=== PATIENT | female | born 1970 | race American Indian/Alaskan Native ===

== ENCOUNTER 2018-10-23 08:32 | Day surgery (SDC) | payer MEDICARE ==
[2018-10-23] MEDS ORDERED: NACL 0.9% 500 ML 500 ML IV SCH (09:00)
[2018-10-23] MEDS ORDERED: ECOTRIN PO ONE (09:30)
[2018-10-23 09:59] LABS: BUN/Creatinine Ratio 21; Blood Urea Nitrogen 15 mg/dL (7-17); Calcium 8.3 mg/dL (8.4-10.2); Hemolysis Index 12
[2018-10-23 10:09] LABS: Basophils % (Auto) 0.3 % (0.0-1.8); Eosinophils # (Auto) 0.2 K/mm3 (0.0-0.4); Eosinophils % (Auto) 2.7 % (0.0-4.3); Hematocrit 28.5 % (30.3-42.9); Hemoglobin 8.7 gm/dl (10.1-14.3); Lymphocytes # (Auto) 1.2 K/mm3 (1.2-5.4); Lymphocytes % (Auto) 13.1 % (13.4-35.0); Mean Corpuscular HGB Conc 31 % (30-34); Mean Corpuscular Volume 73 fl (79-97); Monocytes # (Auto) 0.4 K/mm3 (0.0-0.8); Monocytes % (Auto) 4.7 % (0.0-7.3); Platelet Count 234 K/mm3 (140-440); Red Blood Count 3.91 M/mm3 (3.65-5.03)
[2018-10-23 10:21] LABS: INR 1.12 (0.87-1.13)
[2018-10-23] MEDS ORDERED: HEPARIN/NS 5000 UNIT/500ML(CATH LAB) 500 ML IR ONE ×2 (11:22→11:44)
[2018-10-23] MEDS ORDERED: VERSED ONE (11:22)
[2018-10-23] MEDS ORDERED: SUBLIMAZE ONE (11:23)
[2018-10-23] MEDS ORDERED: XYLOCAINE 2% INFILTRATI ONE (11:23)
--- NOTE | 2018-10-23 12:12 | Short Stay Summary ---
Short Stay Documentation Date of service: 10/23/18 - History H&P: obtained from office - Allergies and Medications Current Medications: Allergies No Known Allergies Allergy (Verified 08/22/13 07:09) Home Medications Medication Instructions Recorded Confirmed Last Taken Type Potassium Chloride [Klor-Con 8] 8 meq PO QDAY #30 tablet 08/22/13 10/23/18 10/22/18 Rx 8meq Prednisone 4 mg PO DAILY 08/22/13 10/23/18 10/22/18 History 4mg Ambrisentan [Letairis] 10 mg PO DAILY #30 tab 01/21/14 10/23/18 10/22/18 Rx 10mg Hydroxychloroquine [Plaquenil] 200 mg PO BID 01/21/14 10/23/18 10/22/18 History 200mg Omeprazole [PriLOSEC] 40 mg PO DAILY 01/21/14 10/23/18 10/22/18 History 40mg Gabapentin 300 mg PO TID 11/09/14 10/23/18 10/22/18 History 300mg Tadalafil (Nf) [Adcirca (Nf)] 20 mg PO DAILY 11/09/14 10/23/18 10/22/18 History 20mg Leflunomide [Arava] 20 mg PO DAILY 10/23/18 10/23/18 10/22/18 History 20mg Active Medications Sodium Chloride (Nacl 0.9% 500 Ml) 500 mls @ 50 mls/hr IV DIRECT PÉREZ Stop: 10/23/18 18:59 Last Admin: 10/23/18 10:54 Dose: 50 mls/hr Documented by: - Physical exam General appearance: no acute distress Integumentary: no rash HEENT: Atraumatic Lungs: Clear to auscultation Breasts: deferred Heart: Regular rate Gastrointestinal: normal Female Genitourinary: deferred Rectal Exam: deferred Extremities: no ischemia Neurological: Normal gait - Brief post op/procedure progress note Date of procedure: 10/23/18 Pre-op diagnosis: PAH Post-op diagnosis: same Procedure: RHC Anesthesia: none Findings: See report Surgeon: JEREMI RENTERIA Estimated blood loss: none Pathology: none Condition: stable - Hospital course Hospital course: Uneventful - Disposition Condition at discharge: Good Disposition: DC-01 TO HOME OR SELFCARE Short Stay Discharge Plan Activity: advance as tolerated Weight Bearing Status: Weight Bear as Tolerated Diet: low fat, low cholesterol, low salt Follow up with: DUSTIN ALAS MD [Primary Care Provider] - 7 Days
[2018-10-23 13:04] VITALS: BP 132/51
--- NOTE | 2018-10-23 19:40 | Cardiac Catherization Report ---
RIGHT HEART CATHETERIZATION INDICATION FOR PROCEDURE: Pulmonary hypertension. PROCEDURES PERFORMED: Right heart catheterization with hemodynamic measurement and oxygen saturation run. DESCRIPTION OF PROCEDURE: After obtaining written consent, the patient was draped using sterile technique. Lidocaine 2% was injected into the right AC area. Over a previously inserted intravenous line, a 6-[place] vascular sheath was inserted into the right brachial vein. A 6-[place]-Christine catheter was used to measure right-sided hemodynamics and performed oxygen saturation run. No complications occurred during the procedure. Hemostasis was achieved at the end of the procedure using manual pressure. SEDATION ADMINISTERED: None. FINDINGS: HEMODYNAMICS: 1. The mean pulmonary capillary wedge pressure is 50 mmHg. The pulmonary artery systolic pressure is 58 mmHg. Pulmonary artery diastolic pressure is 23 mmHg. The mean pulmonary artery pressure is 40 mmHg. The transpulmonary gradient is 25 mmHg. The pulmonary vascular resistance is 5.5 Frost units. 2. The right ventricular systolic pressure is 61 mmHg and the right ventricular end diastolic pressure 14 mmHg. 3. The mean right atrial pressure is 13 mmHg. 4. The thermal dilution, cardiac output 4.55 liters per minute and the thermal dilution, cardiac index 2.26 liters per minute per meter square. The PA saturation was 64%, RA saturation 67%, RV saturation 66%. All measurements were done on room air. IMPRESSION: 1. Moderate pulmonary arterial hypertension with a transpulmonary gradient of 25 mmHg and the pulmonary vascular resistance of 5.5 Frost units. 2. Mean pulmonary capillary wedge pressure measured at 50 mmHg with a thermodilution cardiac index of 2.26 liters per minute per meter squared. JOB# [id number] MENA/EDUARDO
== END 2018-10-23 13:30 | disposition home or self-care (01) ==
LOC: CATHLABREC 08:32
PROVIDERS: ATTEND Internal Medicine
DX: I27.20 Pulmonary hypertension, unspecified (principal); I11.0 Hypertensive heart disease with heart failure; I50.9 Heart failure, unspecified; G62.9 Polyneuropathy, unspecified; K21.9 Gastro-esophageal reflux disease without esophagitis; M19.90 Unspecified osteoarthritis, unspecified site; E05.90 Thyrotoxicosis, unspecified without thyrotoxic crisis or storm; Z79.899 Other long term (current) drug therapy; Z90.49 Acquired absence of other specified parts of digestive tract; Z90.710 Acquired absence of both cervix and uterus; Z98.890 Other specified postprocedural states; Z82.49 Family history of ischemic heart disease and other diseases of the circulatory system; Z86.73 Personal history of transient ischemic attack (TIA), and cerebral infarction without residual deficits; Z86.2 Personal history of diseases of the blood and blood-forming organs and certain disorders involving the immune mechanism
CPT/HCPCS: 36415; 80048; 85025; 85610; 85730; 93005; 93010; 93451; C1769; C1894; J1644; J7040; J2250; J3010